=== PATIENT | male | born 1960 | race Caucasian/White ===

== ENCOUNTER 2022-08-29 14:15 | Inpatient (IN) ==
[2022-08-29] MEDS ORDERED: Aspirin 81 MG TAB.CHEW PO ONE (14:29)
[2022-08-29 14:42] LABS: Mean Corpuscular HGB Conc 34.3 g/dL (31.6-35.5); Mean Corpuscular Hemoglobin 32.6 pg (28.0-33.3); Mean Corpuscular Volume 95.1 fL (83.0-100.0); Mean Platelet Volume 10.1 fL (9.4-12.4); Monocytes % 10.5 %; Platelet Count 471 K/mcL (140-400); Red Blood Count 3.68 M/mcL (4.19-5.50); Red Cell Distribution Width 14.1 % (11.5-14.5); Segmented Neutrophils % 78.1 %; White Blood Count 14.6 K/mcL (4.3-11.1)
[2022-08-29 14:43] LABS: Basophils # 0.1 K/mcL (0.0-0.2); Basophils % 0.3 %; Eosinophils % 0.1 %; Lymphocytes # 1.5 K/mcL (0.6-4.6); Monocytes # 1.5 K/mcL (0.0-1.3); Neutrophils # 11.4 K/mcL (1.6-8.9)
[2022-08-29 14:55] LABS: INR 1.6; Prothrombin Time 18.3 Seconds (9.4-12.1)
[2022-08-29 15:00] LABS: BUN/Creatinine Ratio 28 (6-26); Blood Urea Nitrogen 26 mg/dL (8-23); Calcium 8.7 mg/dL (8.6-10.3); Carbon Dioxide 24 mEq/L (23-29); Chloride 95 mEq/L (98-107); Glucose 137 mg/dL (70-105); Osmolality,Calculated 281 (280-300); Potassium 4.2 mEq/L (3.5-5.1); Sodium 132 mEq/L (136-145)
[2022-08-29 15:06] LABS: Troponin I 0.28 ng/mL (< 0.04)
[2022-08-29] MEDS: DilTIAZem 50 MG/50 ML IV.SOLN IVC SCH ×2 (15:29→18:15)
[2022-08-29] MEDS ORDERED: Mag Hydrox/Al Hydrox/Simeth 30 ML UDC PO PRN (15:53)
[2022-08-29] MEDS ORDERED: *HR* Heparin 5,000 UNIT/ML VIAL IVP ONE (15:53)
[2022-08-29] MEDS ORDERED: Naloxone 0.4 MG/ML INJ IVP PRN (15:53)
[2022-08-29] MEDS ORDERED: *HR* LORazepam 1 MG TABLET PO PRN ×3 (15:53)
[2022-08-29] MEDS ORDERED: Acetaminophen 325 MG TABLET PO PRN (15:53)
[2022-08-29] MEDS ORDERED: Thiamine (B-1) 200 MG in 0.9 % Sodium Chloride 50 ML IVPB ONE (15:53)
[2022-08-29] MEDS ORDERED: *HR* Heparin 5,000 UNIT/ML VIAL IVP PRN (15:53)
[2022-08-29] MEDS ORDERED: MOM Conc 10 ML UD.LIQ PO PRN (15:53)
[2022-08-29 17:30] LABS: Magnesium 1.9 mg/dL (1.6-2.6)
[2022-08-29] MEDS: Heparin 25,000UNIT/250ML 1/2NS 25,000 UNIT/250 ML IV.SOLN IVC SCH (17:51)
[2022-08-29] MEDS ORDERED: *HR* LORazepam 2 MG/ML VIAL IVP STA (17:57)
[2022-08-29] MEDS ORDERED: *HR* Metoprolol 5 MG/5 ML VIAL IVP PRN (18:13)
[2022-08-29] MEDS: Ondansetron ODT 4 MG TAB.RAPDIS SL PRN (19:04)
[2022-08-29 20:40] LABS: VBG HCO3 28 mEq/L (21-27); VBG PCO2 55 mmHg (41-51); VBG PH 7.32 pH Units (7.32-7.42); VBG PO2 41 mmHg (25-50)
[2022-08-30] MEDS: DilTIAZem 50 MG/50 ML IV.SOLN IVC SCH ×3 (01:22→12:00)
[2022-08-30 04:59] LABS: Hematocrit 33.4 % (37.5-50.1); Mean Corpuscular HGB Conc 32.9 g/dL (31.6-35.5); Mean Corpuscular Hemoglobin 31.7 pg (28.0-33.3); Mean Corpuscular Volume 96.3 fL (83.0-100.0); Mean Platelet Volume 10.3 fL (9.4-12.4); Platelet Count 434 K/mcL (140-400); Red Blood Count 3.47 M/mcL (4.19-5.50); Red Cell Distribution Width 14.3 % (11.5-14.5); White Blood Count 17.2 K/mcL (4.3-11.1)
[2022-08-30 05:27] LABS: Albumin/Globulin Ratio 0.9 (1.1-2.2); Bilirubin,Total 1.1 mg/dL (0.3-1.0); Calcium 8.4 mg/dL (8.6-10.3); Chol/HDL Ratio 4.9 (0-4.9); Globulin 3.2 g/dL (2.4-3.5); Phosphorous 5.1 mg/dL (2.7-4.5); Potassium 4.5 mEq/L (3.5-5.1); Total Protein 6.2 g/dL (6.4-8.9); Troponin I 1.41 ng/mL (< 0.04)
[2022-08-30] MEDS: *HR* Heparin 5,000 UNIT/ML VIAL IVP PRN ×2 (05:27→12:11)
[2022-08-30] MEDS ORDERED: Iopamidol - 370 500 ML MLS IVP ONE ×2 (07:54→10:02)
[2022-08-30] MEDS ORDERED: 0.9 % Sodium Chloride 1,000 ML IVC SCH (08:00)
[2022-08-30] MEDS: Folic Acid 1 MG TABLET PO SCH (08:04)
[2022-08-30] MEDS ORDERED: Vitamin B Complex/Vit C/Vit E 1 EACH TABLET PO SCH (09:00)
[2022-08-30] MEDS ORDERED: Thiamine (B-1) 100 MG TABLET PO SCH (09:00)
[2022-08-30] MEDS ORDERED: Gadolinium Contrast Agent (WT Based) IV PRN (09:51)
[2022-08-30] MEDS ORDERED: Iopamidol - 370 500 ML MLS PO ONE (11:28)
[2022-08-30] MEDS: Ondansetron ODT 4 MG TAB.RAPDIS SL PRN ×2 (12:53→20:30)
[2022-08-30] MEDS: Heparin 25,000UNIT/250ML 1/2NS 25,000 UNIT/250 ML IV.SOLN IVC SCH (14:15)
[2022-08-30] MEDS ORDERED: Acetaminophen 325 MG TABLET PO PRN (14:47)
[2022-08-30] MEDS ORDERED: Levalbuterol Neb 0.63 MG/3 ML IH PRN (14:56)
[2022-08-30] MEDS: Budesonide/Formoterol 160/4.5 1 PUFF INH IH SCH (22:24)
[2022-08-31 01:02] LABS: Basophils % 0.2 %; Hematocrit 31.7 % (37.5-50.1); Hemoglobin 10.4 g/dL (12.9-16.9); Immature Granulocytes % 1.9 % (0-4); Lymphocytes # 1.4 K/mcL (0.6-4.6); Lymphocytes % 6.1 %; Mean Corpuscular HGB Conc 32.8 g/dL (31.6-35.5); Mean Corpuscular Hemoglobin 32.5 pg (28.0-33.3); Mean Corpuscular Volume 99.1 fL (83.0-100.0); Mean Platelet Volume 10.3 fL (9.4-12.4); Monocytes # 1.4 K/mcL (0.0-1.3); Monocytes % 6.2 %; Neutrophils # 19.2 K/mcL (1.6-8.9); Nucleated Red Blood Cells 0.1 /100 WBC (0); Platelet Count 487 K/mcL (140-400); Red Cell Distribution Width 14.2 % (11.5-14.5); Segmented Neutrophils % 85.6 %; White Blood Count 22.4 K/mcL (4.3-11.1)
[2022-08-31 01:15] LABS: INR 2.3; Prothrombin Time 25.3 Seconds (9.4-12.1)
[2022-08-31 01:20] LABS: Calcium 7.8 mg/dL (8.6-10.3); Magnesium 2.2 mg/dL (1.6-2.6); Potassium 5.1 mEq/L (3.5-5.1)
[2022-08-31 01:33] LABS: Alanine Aminotransferase 1086 Units/L (7-52); Albumin 2.8 g/dL (3.5-5.7); Albumin/Globulin Ratio 0.9 (1.1-2.2); Alkaline Phosphatase 105 Units/L (34-104); Aspartate Amino Transferase > 3000 Units/L (13-39); Bilirubin,Indirect 0.7 mg/dL (0.0-1.0); Bilirubin,Total 1.7 mg/dL (0.3-1.0); Total Protein 5.8 g/dL (6.4-8.9)
[2022-08-31 02:02] LABS: Hepatitis B Surface Antigen Nonreactive (Nonreactive)
[2022-08-31 02:31] LABS: Hepatitis B Core IgM Nonreactive (Nonreactive)
[2022-08-31 02:32] LABS: Hepatitis A Antibody IgM Nonreactive (Nonreactive); Hepatitis C Virus Antibody Nonreactive (Nonreactive)
[2022-08-31] MEDS ORDERED: MethylPREDNISolone 40 MG/ML VIAL IVP ONE (07:35)
[2022-08-31] MEDS ORDERED: Thiamine (B-1) 100 MG, Folic Acid 1 MG, MVI, adult with vitamin K 10 ML in 0.9 % Sodi... IVPB SCH ×2 (07:40→09:00)
[2022-08-31] MEDS ORDERED: *HR* Phytonadione 10 MG/ML AMPUL SQ ONE (07:41)
[2022-08-31] MEDS ORDERED: 0.9 % Sodium Chloride 1,000 ML IVC SCH (07:45)
[2022-08-31] MEDS: Budesonide/Formoterol 160/4.5 1 PUFF INH IH SCH ×2 (08:06→22:20)
[2022-08-31] MEDS ORDERED: Aspirin Enteric Coated 81 MG Tablet PO SCH (09:00)
[2022-08-31] MEDS: Albumin Human 5% 12.5 GM/250 ML IV.SOLN IVC SCH ×3 (09:12→17:54)
[2022-08-31] MEDS: Folic Acid 1 MG TABLET PO SCH (09:13)
[2022-08-31] MEDS ORDERED: 0.9 % Sodium Chloride 250 ML ONE (11:44)
[2022-08-31] MEDS ORDERED: *HR* FentaNYL (PF) 100 MCG/2 ML VIAL IVP PRN ×2 (13:07→15:59)
[2022-08-31] MEDS ORDERED: Ondansetron 4 MG/2 ML VIAL IVP PRN ×2 (13:07→15:59)
[2022-08-31] MEDS ORDERED: Lidocaine -MPF 2% 2 ML VIAL ONE (13:12)
[2022-08-31] MEDS ORDERED: Ondansetron 4 MG/2 ML VIAL ONE (13:12)
[2022-08-31] MEDS ORDERED: *HR* FentaNYL (PF) 100 MCG/2 ML VIAL ONE (13:12)
[2022-08-31] MEDS ORDERED: *HR* Rocuronium Bromide 50 MG/5 ML VIAL ONE (13:14)
[2022-08-31] MEDS ORDERED: *HR* Phenylephrine 10 MG/ML VIAL ONE (14:00)
[2022-08-31] MEDS ORDERED: Mag Hydrox/Al Hydrox/Simeth 30 ML UDC PO PRN (15:59)
[2022-08-31] MEDS ORDERED: Levalbuterol Neb 0.63 MG/3 ML IH PRN (15:59)
[2022-08-31] MEDS ORDERED: *HR* Metoprolol 5 MG/5 ML VIAL IVP PRN (15:59)
[2022-08-31] MEDS ORDERED: Gadolinium Contrast Agent (WT Based) IV PRN (15:59)
[2022-08-31] MEDS ORDERED: *HR* LORazepam 1 MG TABLET PO PRN ×3 (15:59)
[2022-08-31] MEDS ORDERED: MOM Conc 10 ML UD.LIQ PO PRN (15:59)
[2022-08-31] MEDS ORDERED: Naloxone 0.4 MG/ML INJ IVP PRN (15:59)
[2022-08-31] MEDS: DilTIAZem 50 MG/50 ML IV.SOLN IVC SCH ×2 (17:51→20:59)
[2022-09-01] MEDS: *HR* HYDROcodone/Acet 5/325 mg TABLET PO PRN ×2 (02:54→23:00)
[2022-09-01] MEDS: DilTIAZem 50 MG/50 ML IV.SOLN IVC SCH (03:22)
[2022-09-01] MEDS ORDERED: 0.9 % Sodium Chloride 250 ML ONE (03:29)
[2022-09-01] MEDS ORDERED: 0.9 % Sodium Chloride 250 ML IVC ONE (03:31)
[2022-09-01] MEDS: Ondansetron ODT 4 MG TAB.RAPDIS SL PRN (04:10)
[2022-09-01] MEDS ORDERED: Albumin 25% 25gram/100mL 25 GM/100 ML IV.SOLN IVPB ONE (05:16)
[2022-09-01 06:31] LABS: Basophils % 0.1 %; Hematocrit 33.8 % (37.5-50.1); Hemoglobin 10.8 g/dL (12.9-16.9); Lymphocytes # 0.8 K/mcL (0.6-4.6); Lymphocytes % 5.2 %; Mean Corpuscular Volume 100.3 fL (83.0-100.0); Mean Platelet Volume 10.6 fL (9.4-12.4); Monocytes # 0.9 K/mcL (0.0-1.3); Monocytes % 5.2 %; Neutrophils # 14.3 K/mcL (1.6-8.9); Nucleated Red Blood Cells 1.3 /100 WBC (0); Platelet Count 334 K/mcL (140-400); Red Blood Count 3.37 M/mcL (4.19-5.50); Red Cell Distribution Width 14.3 % (11.5-14.5); Segmented Neutrophils % 87.5 %; White Blood Count 16.3 K/mcL (4.3-11.1)
[2022-09-01 06:43] LABS: INR 2.3; Prothrombin Time 25.5 Seconds (9.4-12.1)
[2022-09-01 06:46] LABS: Activated Partial Thrombo Time 31.2 Seconds (26.0-36.0)
[2022-09-01] MEDS ORDERED: 0.9 % Sodium Chloride 500 ML IVC ONE (06:59)
[2022-09-01 07:23] LABS: Albumin 3.3 g/dL (3.5-5.7); Albumin/Globulin Ratio 1.2 (1.1-2.2); Bilirubin,Direct 0.8 mg/dL (0.0-0.2); Bilirubin,Indirect 0.7 mg/dL (0.0-1.0); Bilirubin,Total 1.5 mg/dL (0.3-1.0); Calcium 7.8 mg/dL (8.6-10.3); Globulin 2.8 g/dL (2.4-3.5); Magnesium 2.4 mg/dL (1.6-2.6); Potassium 4.5 mEq/L (3.5-5.1); Total Protein 6.1 g/dL (6.4-8.9)
[2022-09-01] MEDS: Aspirin Enteric Coated 81 MG Tablet PO SCH (09:21)
[2022-09-01] MEDS: Budesonide/Formoterol 160/4.5 1 PUFF INH IH SCH ×2 (09:48→20:22)
[2022-09-01] MEDS: PrednisoLONE Oral Soln 15 MG/5 ML UDC PO SCH (13:17)
[2022-09-01] MEDS ORDERED: *HR* Heparin 5,000 UNIT/ML VIAL IVP PRN ×2 (16:09)
[2022-09-01] MEDS: Albumin Human 5% 12.5 GM/250 ML IV.SOLN IVC SCH (16:09)
[2022-09-01] MEDS ORDERED: Heparin 25,000UNIT/250ML 1/2NS 25,000 UNIT/250 ML IV.SOLN IVC SCH (16:15)
[2022-09-01] MEDS: Sennosides/Docusate Sodium TABLET PO SCH (20:25)
[2022-09-02 02:38] LABS: Basophils % 0.1 %; Hematocrit 32.6 % (37.5-50.1); Hemoglobin 11.1 g/dL (12.9-16.9); Immature Granulocytes % 1.7 % (0-4); Lymphocytes # 1.3 K/mcL (0.6-4.6); Lymphocytes % 7.3 %; Mean Corpuscular Hemoglobin 32.7 pg (28.0-33.3); Mean Corpuscular Volume 96.2 fL (83.0-100.0); Mean Platelet Volume 10.7 fL (9.4-12.4); Monocytes % 5.6 %; Neutrophils # 14.9 K/mcL (1.6-8.9); Nucleated Red Blood Cells 3.2 /100 WBC (0); Platelet Count 277 K/mcL (140-400); Red Blood Count 3.39 M/mcL (4.19-5.50); Red Cell Distribution Width 14.4 % (11.5-14.5); Segmented Neutrophils % 85.3 %; White Blood Count 17.4 K/mcL (4.3-11.1)
[2022-09-02 02:46] LABS: INR 2.1; Prothrombin Time 23.1 Seconds (9.4-12.1)
[2022-09-02 02:49] LABS: Activated Partial Thrombo Time 38.9 Seconds (26.0-36.0)
[2022-09-02 03:18] LABS: Albumin 3.2 g/dL (3.5-5.7); Albumin/Globulin Ratio 1.1 (1.1-2.2); Globulin 2.8 g/dL (2.4-3.5); Magnesium 2.5 mg/dL (1.6-2.6); Potassium 4.8 mEq/L (3.5-5.1)
[2022-09-02] MEDS: Aspirin Enteric Coated 81 MG Tablet PO SCH (08:41)
[2022-09-02] MEDS: PrednisoLONE Oral Soln 15 MG/5 ML UDC PO SCH (08:41)
[2022-09-02] MEDS: Sennosides/Docusate Sodium TABLET PO SCH ×2 (08:42→20:05)
[2022-09-02] MEDS: Budesonide/Formoterol 160/4.5 1 PUFF INH IH SCH ×2 (09:27→20:27)
[2022-09-02] MEDS: *HR* HYDROcodone/Acet 5/325 mg TABLET PO PRN ×2 (11:57→20:05)
[2022-09-02] MEDS ORDERED: *HR* Phytonadione 10 MG/ML AMPUL SQ ONE (12:29)
[2022-09-02 14:31] LABS: Bilirubin,Urine Negative (Negative); Blood,Urine Negative (Negative); Clarity,Urine Clear (Clear); Color,Urine Yellow (Yellow); Glucose,Urine (UA) Normal (Normal); Ketones,Urine Negative (Negative); Leukocyte Esterase,Urine Negative (Negative); Nitrite,Urine Negative (Negative); Protein,Urine Trace mg/dL (Neg-Trace); Specific Gravity,Urine 1.024 (1.010-1.025)
[2022-09-02 14:45] LABS: Creatinine,Urine 72 mg/dL; Sodium, Urine < 10.0 mEq/L
[2022-09-02] MEDS: Albumin Human 5% 12.5 GM/250 ML IV.SOLN IVC SCH ×2 (15:49→20:05)
[2022-09-03 06:24] LABS: Basophils # 0.1 K/mcL (0.0-0.2); Basophils % 0.3 %; Eosinophils # 0.1 K/mcL (0.0-0.6); Eosinophils % 0.5 %; Hematocrit 33.6 % (37.5-50.1); Hemoglobin 11.1 g/dL (12.9-16.9); Lymphocytes # 1.5 K/mcL (0.6-4.6); Lymphocytes % 8.4 %; Mean Corpuscular Hemoglobin 31.9 pg (28.0-33.3); Mean Corpuscular Volume 96.6 fL (83.0-100.0); Monocytes # 1.5 K/mcL (0.0-1.3); Monocytes % 8.3 %; Neutrophils # 14.1 K/mcL (1.6-8.9); Nucleated Red Blood Cells 2.3 /100 WBC (0); Platelet Count 269 K/mcL (140-400); Red Blood Count 3.48 M/mcL (4.19-5.50); Red Cell Distribution Width 14.7 % (11.5-14.5); Segmented Neutrophils % 80.5 %; White Blood Count 17.6 K/mcL (4.3-11.1)
[2022-09-03 06:31] LABS: INR 1.8; Prothrombin Time 19.5 Seconds (9.4-12.1)
[2022-09-03 06:33] LABS: Activated Partial Thrombo Time 27.9 Seconds (26.0-36.0)
[2022-09-03 06:58] LABS: Albumin 3.4 g/dL (3.5-5.7); Albumin/Globulin Ratio 1.3 (1.1-2.2); Bilirubin,Indirect 0.9 mg/dL (0.0-1.0); Bilirubin,Total 1.9 mg/dL (0.3-1.0); Globulin 2.7 g/dL (2.4-3.5); Magnesium 2.5 mg/dL (1.6-2.6); Potassium 4.6 mEq/L (3.5-5.1); Total Protein 6.1 g/dL (6.4-8.9)
[2022-09-03] MEDS: PrednisoLONE Oral Soln 15 MG/5 ML UDC PO SCH (08:28)
[2022-09-03] MEDS: Aspirin Enteric Coated 81 MG Tablet PO SCH (08:28)
[2022-09-03] MEDS: Multivit/Ca/Min/Fe/FA 1 TAB TABLET PO SCH (08:28)
[2022-09-03] MEDS: Sennosides/Docusate Sodium TABLET PO SCH ×2 (08:28→20:44)
[2022-09-03] MEDS: Budesonide/Formoterol 160/4.5 1 PUFF INH IH SCH ×2 (09:50→20:21)
[2022-09-03] MEDS: Ondansetron ODT 4 MG TAB.RAPDIS SL PRN (11:24)
[2022-09-03] MEDS: *HR* HYDROcodone/Acet 5/325 mg TABLET PO PRN ×2 (12:56→20:43)
[2022-09-03] MEDS: Apixaban 5 MG TABLET PO SCH ×2 (12:57→20:44)
[2022-09-03] MEDS: *HR* Digoxin 0.5 MG/2 ML AMPUL IVP SCH (19:44)
[2022-09-04] MEDS: *HR* Digoxin 0.5 MG/2 ML AMPUL IVP SCH ×2 (02:33→07:53)
[2022-09-04] MEDS: Budesonide/Formoterol 160/4.5 1 PUFF INH IH SCH ×2 (07:43→20:04)
[2022-09-04] MEDS: Multivit/Ca/Min/Fe/FA 1 TAB TABLET PO SCH (07:52)
[2022-09-04] MEDS: Sennosides/Docusate Sodium TABLET PO SCH ×2 (07:52→20:59)
[2022-09-04] MEDS: Apixaban 5 MG TABLET PO SCH ×2 (07:52→20:59)
[2022-09-04] MEDS: Aspirin Enteric Coated 81 MG Tablet PO SCH (07:52)
[2022-09-04] MEDS: PrednisoLONE Oral Soln 15 MG/5 ML UDC PO SCH (07:53)
[2022-09-04 10:11] LABS: Basophils # 0.1 K/mcL (0.0-0.2); Basophils % 0.2 %; Hematocrit 36.9 % (37.5-50.1); Hemoglobin 12.3 g/dL (12.9-16.9); Immature Granulocytes % 1.4 % (0-4); Lymphocytes # 1.2 K/mcL (0.6-4.6); Lymphocytes % 5.7 %; Mean Corpuscular HGB Conc 33.3 g/dL (31.6-35.5); Mean Corpuscular Volume 96.1 fL (83.0-100.0); Mean Platelet Volume 11.1 fL (9.4-12.4); Monocytes # 1.4 K/mcL (0.0-1.3); Monocytes % 6.7 %; Nucleated Red Blood Cells 1.1 /100 WBC (0); Platelet Count 281 K/mcL (140-400); Red Blood Count 3.84 M/mcL (4.19-5.50); Red Cell Distribution Width 15.1 % (11.5-14.5)
[2022-09-04 10:21] LABS: Activated Partial Thrombo Time 30.8 Seconds (26.0-36.0)
[2022-09-04 10:27] LABS: INR 3.4; Prothrombin Time 37.1 Seconds (9.4-12.1)
[2022-09-04 10:29] LABS: Calcium 8.1 mg/dL (8.6-10.3); Potassium 4.8 mEq/L (3.5-5.1)
[2022-09-04 11:00] LABS: Albumin 3.2 g/dL (3.5-5.7); Bilirubin,Direct 1.1 mg/dL (0.0-0.2); Bilirubin,Total 2.1 mg/dL (0.3-1.0); Globulin 3.1 g/dL (2.4-3.5); Total Protein 6.3 g/dL (6.4-8.9)
[2022-09-04] MEDS ORDERED: *HR* Digoxin 0.5 MG/2 ML AMPUL IVP ONE (14:00)
[2022-09-04] MEDS: *HR* HYDROcodone/Acet 5/325 mg TABLET PO PRN (20:59)
[2022-09-05 03:32] LABS: Basophils # 0.1 K/mcL (0.0-0.2); Basophils % 0.3 %; Hematocrit 36.6 % (37.5-50.1); Hemoglobin 11.9 g/dL (12.9-16.9); Immature Granulocytes % 1.2 % (0-4); Lymphocytes # 1.2 K/mcL (0.6-4.6); Lymphocytes % 5.4 %; Mean Corpuscular HGB Conc 32.5 g/dL (31.6-35.5); Mean Corpuscular Hemoglobin 31.9 pg (28.0-33.3); Mean Corpuscular Volume 98.1 fL (83.0-100.0); Mean Platelet Volume 11.4 fL (9.4-12.4); Monocytes % 8.9 %; Neutrophils # 18.8 K/mcL (1.6-8.9); Nucleated Red Blood Cells 0.6 /100 WBC (0); Platelet Count 274 K/mcL (140-400); Red Blood Count 3.73 M/mcL (4.19-5.50); Red Cell Distribution Width 15.8 % (11.5-14.5); Segmented Neutrophils % 84.2 %; White Blood Count 22.3 K/mcL (4.3-11.1)
[2022-09-05 03:59] LABS: Alanine Aminotransferase 383 Units/L (7-52); Albumin 2.8 g/dL (3.5-5.7); Albumin/Globulin Ratio 1.1 (1.1-2.2); Alkaline Phosphatase 128 Units/L (34-104); Aspartate Amino Transferase 158 Units/L (13-39); BUN/Creatinine Ratio 40 (6-26); Bilirubin,Indirect 0.9 mg/dL (0.0-1.0); Bilirubin,Total 1.9 mg/dL (0.3-1.0); Blood Urea Nitrogen 33 mg/dL (8-23); Calcium 7.8 mg/dL (8.6-10.3); Carbon Dioxide 28 mEq/L (23-29); Chloride 105 mEq/L (98-107); Globulin 2.6 g/dL (2.4-3.5); Glucose 129 mg/dL (70-105); Osmolality,Calculated 293 (280-300); Potassium 4.4 mEq/L (3.5-5.1); Sodium 137 mEq/L (136-145); Total Protein 5.4 g/dL (6.4-8.9)
[2022-09-05] MEDS: Budesonide/Formoterol 160/4.5 1 PUFF INH IH SCH (07:26)
[2022-09-05] MEDS ORDERED: PrednisoLONE Oral Soln 15 MG/5 ML UDC PO SCH ×2 (09:00)
[2022-09-05] MEDS: Sennosides/Docusate Sodium TABLET PO SCH (09:13)
[2022-09-05] MEDS: Aspirin Enteric Coated 81 MG Tablet PO SCH (09:13)
[2022-09-05] MEDS: Multivit/Ca/Min/Fe/FA 1 TAB TABLET PO SCH (09:13)
[2022-09-05] MEDS: Apixaban 5 MG TABLET PO SCH (09:13)
[2022-09-05 10:53] VITALS: BP 140/90; PULSE 97; TEMP 98; O2SAT 95
== END 2022-09-05 14:18 | disposition home health service (06) | DRG 45 ==
LOC: EMEROOARM 14:15 → 2NENU 14:15 → SUATTDRO 16:12 → 2NENU 17:00 → 2NNU 08-31 15:33 → 2ANU 09-04 17:24
PROVIDERS: ADMIT Internal Medicine; ATTEND Internal Medicine

== ENCOUNTER 2022-09-06 03:32 | Inpatient (IN) ==
[2022-09-06] MEDS ORDERED: *HR* Metoprolol 5 MG/5 ML VIAL IVP ONE ×3 (04:10→05:48)
[2022-09-06 04:42] LABS: Nucleated Red Blood Cells 0.4 /100 WBC (0); Red Cell Distribution Width 15.9 % (11.5-14.5)
[2022-09-06 04:44] LABS: Basophils # 0.1 K/mcL (0.0-0.2); Basophils % 0.4 %; Hematocrit 49.6 % (37.5-50.1); Hemoglobin 16.6 g/dL (12.9-16.9); Lymphocytes % 3.5 %; Mean Corpuscular HGB Conc 33.5 g/dL (31.6-35.5); Mean Corpuscular Hemoglobin 32.2 pg (28.0-33.3); Mean Corpuscular Volume 96.3 fL (83.0-100.0); Mean Platelet Volume 11.2 fL (9.4-12.4); Monocytes # 0.8 K/mcL (0.0-1.3); Monocytes % 2.8 %; Neutrophils # 26.4 K/mcL (1.6-8.9); Platelet Count 379 K/mcL (140-400); Red Blood Count 5.15 M/mcL (4.19-5.50); Segmented Neutrophils % 92.3 %; White Blood Count 28.6 K/mcL (4.3-11.1)
[2022-09-06] MEDS ORDERED: Ondansetron 4 MG/2 ML VIAL IVP ONE ×2 (04:55→09:40)
[2022-09-06 05:10] LABS: Calcium 8.7 mg/dL (8.6-10.3); Magnesium 1.9 mg/dL (1.6-2.6)
[2022-09-06 05:47] LABS: Albumin 3.3 g/dL (3.5-5.7); Bilirubin,Direct 1.2 mg/dL (0.0-0.2); Bilirubin,Indirect 1.8 mg/dL (0.0-1.0); Globulin 3.4 g/dL (2.4-3.5); Total Protein 6.7 g/dL (6.4-8.9)
[2022-09-06] MEDS ORDERED: 0.9 % Sodium Chloride 500 ML IVC ONE (05:47)
[2022-09-06] MEDS ORDERED: Amiodarone Premix 360 MG/200 ML BAG IVC SCH ×2 (07:00→15:09)
[2022-09-06] MEDS ORDERED: 0.9 % Sodium Chloride 250 ML IV ONE (09:05)
[2022-09-06] MEDS ORDERED: 0.9 % Sodium Chloride 500 ML ONE (09:07)
[2022-09-06] MEDS ORDERED: Amiodarone Premix 150 MG/100 ML BAG IVPB ONE (09:09)
[2022-09-06] MEDS ORDERED: Amiodarone Premix 360 MG/200 ML BAG IVC ONE (09:09)
[2022-09-06] MEDS ORDERED: Albumin 25% 25gram/100mL 25 GM/100 ML IV.SOLN IVPB PRN (09:12)
[2022-09-06] MEDS ORDERED: Ondansetron 4 MG/2 ML VIAL IVP PRN (10:41)
[2022-09-06] MEDS ORDERED: Naloxone 0.4 MG/ML INJ IVP PRN (10:41)
[2022-09-06] MEDS ORDERED: Sennosides/Docusate Sodium TABLET PO PRN (11:45)
[2022-09-06] MEDS ORDERED: Levalbuterol Neb 0.63 MG/3 ML IH PRN (11:45)
[2022-09-06] MEDS ORDERED: Iopamidol - 370 500 ML MLS IVP ONE (15:19)
[2022-09-06] MEDS: Apixaban 5 MG TABLET PO SCH ×2 (15:47→21:14)
[2022-09-06] MEDS: *HR* HYDROcodone/Acet 5/325 mg TABLET PO PRN (15:47)
[2022-09-06] MEDS: PrednisoLONE Oral Soln 15 MG/5 ML UDC PO SCH (15:47)
[2022-09-06] MEDS: Metoprolol 100 MG TABLET PO SCH ×2 (15:48→21:15)
[2022-09-07] MEDS: *HR* HYDROcodone/Acet 5/325 mg TABLET PO PRN ×2 (05:57→13:49)
[2022-09-07] MEDS ORDERED: *HR* Metoprolol 5 MG/5 ML VIAL IVP ONE ×2 (06:13→06:52)
[2022-09-07] MEDS: Aspirin Enteric Coated 81 MG Tablet PO SCH (07:45)
[2022-09-07] MEDS: PrednisoLONE Oral Soln 15 MG/5 ML UDC PO SCH (07:45)
[2022-09-07] MEDS: Apixaban 5 MG TABLET PO SCH ×2 (07:46→19:42)
[2022-09-07 08:13] LABS: INR 3.3
[2022-09-07 08:16] LABS: Activated Partial Thrombo Time 38.5 Seconds (26.0-36.0)
[2022-09-07 08:19] LABS: Basophils # 0.1 K/mcL (0.0-0.2); Basophils % 0.2 %; Hematocrit 37.5 % (37.5-50.1); Immature Granulocytes % 1.9 % (0-4); Lymphocytes # 1.2 K/mcL (0.6-4.6); Lymphocytes % 3.5 %; Mean Corpuscular HGB Conc 34.4 g/dL (31.6-35.5); Mean Corpuscular Hemoglobin 31.9 pg (28.0-33.3); Mean Corpuscular Volume 92.8 fL (83.0-100.0); Mean Platelet Volume 11.3 fL (9.4-12.4); Monocytes # 1.7 K/mcL (0.0-1.3); Monocytes % 4.9 %; Neutrophils # 31.3 K/mcL (1.6-8.9); Platelet Count 268 K/mcL (140-400); Red Blood Count 4.04 M/mcL (4.19-5.50); Red Cell Distribution Width 15.2 % (11.5-14.5); Segmented Neutrophils % 89.5 %
[2022-09-07 08:28] LABS: Hemoglobin 12.9 g/dL (12.9-16.9)
[2022-09-07 08:39] LABS: Albumin 2.7 g/dL (3.5-5.7); Albumin/Globulin Ratio 1.1 (1.1-2.2); Bilirubin,Direct 1.7 mg/dL (0.0-0.2); Bilirubin,Indirect 1.3 mg/dL (0.0-1.0); Calcium 8.1 mg/dL (8.6-10.3); Globulin 2.5 g/dL (2.4-3.5); Magnesium 1.9 mg/dL (1.6-2.6); Phosphorous 3.8 mg/dL (2.7-4.5); Potassium 4.7 mEq/L (3.5-5.1); Total Protein 5.2 g/dL (6.4-8.9)
[2022-09-07] MEDS: Metoprolol 100 MG TABLET PO SCH ×2 (11:29→19:42)
[2022-09-07] MEDS: Budesonide/Formoterol 160/4.5 1 PUFF INH IH SCH (20:44)
[2022-09-08] MEDS: *HR* HYDROcodone/Acet 5/325 mg TABLET PO PRN ×3 (02:11→21:28)
[2022-09-08] MEDS ORDERED: *HR* Metoprolol 5 MG/5 ML VIAL IVP ONE (02:30)
[2022-09-08 02:51] LABS: Basophils # 0.1 K/mcL (0.0-0.2); Basophils % 0.2 %; Hematocrit 36.8 % (37.5-50.1); Hemoglobin 12.4 g/dL (12.9-16.9); Immature Granulocytes % 1.2 % (0-4); Lymphocytes # 1.1 K/mcL (0.6-4.6); Lymphocytes % 3.7 %; Mean Corpuscular HGB Conc 33.7 g/dL (31.6-35.5); Mean Corpuscular Hemoglobin 30.9 pg (28.0-33.3); Mean Corpuscular Volume 91.8 fL (83.0-100.0); Mean Platelet Volume 11.2 fL (9.4-12.4); Monocytes # 1.5 K/mcL (0.0-1.3); Monocytes % 5.2 %; Neutrophils # 26.6 K/mcL (1.6-8.9); Nucleated Red Blood Cells 0.1 /100 WBC (0); Platelet Count 282 K/mcL (140-400); Red Blood Count 4.01 M/mcL (4.19-5.50); Red Cell Distribution Width 15.1 % (11.5-14.5); Segmented Neutrophils % 89.7 %; White Blood Count 29.7 K/mcL (4.3-11.1)
[2022-09-08 03:12] LABS: BUN/Creatinine Ratio 46 (6-26); Blood Urea Nitrogen 39 mg/dL (8-23); Calcium 8.5 mg/dL (8.6-10.3); Carbon Dioxide 25 mEq/L (23-29); Chloride 101 mEq/L (98-107); Glucose 103 mg/dL (70-105); Magnesium 1.9 mg/dL (1.6-2.6); Osmolality,Calculated 284 (280-300); Phosphorous 2.6 mg/dL (2.7-4.5); Potassium 4.7 mEq/L (3.5-5.1); Sodium 132 mEq/L (136-145)
[2022-09-08] MEDS: Budesonide/Formoterol 160/4.5 1 PUFF INH IH SCH ×2 (07:43→19:45)
[2022-09-08] MEDS: Metoprolol 100 MG TABLET PO SCH ×2 (08:25→19:53)
[2022-09-08] MEDS: Aspirin Enteric Coated 81 MG Tablet PO SCH (08:26)
[2022-09-08] MEDS: Apixaban 5 MG TABLET PO SCH ×2 (08:26→19:53)
[2022-09-08] MEDS: PrednisoLONE Oral Soln 15 MG/5 ML UDC PO SCH (08:28)
[2022-09-08] MEDS ORDERED: Albumin 25% 25gram/100mL 25 GM/100 ML IV.SOLN IVPB ONE (09:11)
[2022-09-09] MEDS: *HR* HYDROcodone/Acet 5/325 mg TABLET PO PRN ×5 (03:24→20:15)
[2022-09-09 05:26] LABS: Basophils # 0.1 K/mcL (0.0-0.2); Basophils % 0.3 %; Hematocrit 33.8 % (37.5-50.1); Hemoglobin 11.6 g/dL (12.9-16.9); Immature Granulocytes % 1.5 % (0-4); Lymphocytes % 3.8 %; Mean Corpuscular HGB Conc 34.3 g/dL (31.6-35.5); Mean Corpuscular Hemoglobin 31.4 pg (28.0-33.3); Mean Corpuscular Volume 91.4 fL (83.0-100.0); Mean Platelet Volume 11.5 fL (9.4-12.4); Monocytes # 1.8 K/mcL (0.0-1.3); Monocytes % 6.5 %; Neutrophils # 23.9 K/mcL (1.6-8.9); Nucleated Red Blood Cells 0.1 /100 WBC (0); Platelet Count 280 K/mcL (140-400); Red Cell Distribution Width 15.3 % (11.5-14.5); Segmented Neutrophils % 87.9 %; White Blood Count 27.2 K/mcL (4.3-11.1)
[2022-09-09 05:40] LABS: BUN/Creatinine Ratio 44 (6-26); Blood Urea Nitrogen 30 mg/dL (8-23); Calcium 8.3 mg/dL (8.6-10.3); Carbon Dioxide 29 mEq/L (23-29); Chloride 102 mEq/L (98-107); Glucose 95 mg/dL (70-105); Magnesium 1.9 mg/dL (1.6-2.6); Osmolality,Calculated 286 (280-300); Phosphorous 2.7 mg/dL (2.7-4.5); Potassium 4.2 mEq/L (3.5-5.1); Sodium 135 mEq/L (136-145)
[2022-09-09] MEDS: Budesonide/Formoterol 160/4.5 1 PUFF INH IH SCH ×4 (07:59→20:11)
[2022-09-09] MEDS: Apixaban 5 MG TABLET PO SCH ×2 (08:03→20:15)
[2022-09-09] MEDS: Metoprolol 100 MG TABLET PO SCH ×2 (08:03→20:14)
[2022-09-09] MEDS: Aspirin Enteric Coated 81 MG Tablet PO SCH (08:03)
[2022-09-09] MEDS: PrednisoLONE Oral Soln 15 MG/5 ML UDC PO SCH (08:04)
[2022-09-09] MEDS: *HR* OxyCODONE ER (12 HR) 10 MG TABLET PO SCH (17:59)
[2022-09-10] MEDS: *HR* HYDROcodone/Acet 5/325 mg TABLET PO PRN ×3 (00:17→08:41)
[2022-09-10] MEDS: *HR* OxyCODONE ER (12 HR) 10 MG TABLET PO SCH (06:11)
[2022-09-10] MEDS: Metoprolol 100 MG TABLET PO SCH ×2 (06:57→21:47)
[2022-09-10 07:27] VITALS: BP 124/84; PULSE 44; TEMP 97.4; O2SAT 98
[2022-09-10] MEDS ORDERED: *HR* Digoxin 0.5 MG/2 ML AMPUL IVP ONE (08:02)
[2022-09-10] MEDS: Apixaban 5 MG TABLET PO SCH ×2 (08:40→21:47)
[2022-09-10] MEDS: Aspirin Enteric Coated 81 MG Tablet PO SCH (08:41)
[2022-09-10] MEDS: PrednisoLONE Oral Soln 15 MG/5 ML UDC PO SCH (08:42)
[2022-09-10] MEDS ORDERED: Morphine Sulfate 2 MG/ML SYRINGE IVP PRN (09:15)
[2022-09-10] MEDS ORDERED: *HR* FentaNYL PATCH 25 MCG PATCH TD SCH (10:30)
[2022-09-10] MEDS: Morphine Sulfate 2 MG/ML SYRINGE IVP PRN ×2 (10:37→16:53)
[2022-09-10] MEDS: Budesonide/Formoterol 160/4.5 1 PUFF INH IH SCH ×2 (10:56→20:41)
[2022-09-10] MEDS: *HR* LORazepam 2 MG/ML VIAL IVP PRN ×2 (12:50→18:41)
[2022-09-10] MEDS ORDERED: Benzonatate 100 MG CAPSULE PO PRN (22:56)
[2022-09-10] MEDS ORDERED: Scopolamine Patch 1.5 MG PATCH.TD72 TD SCH (23:00)
[2022-09-11] MEDS: *HR* LORazepam 2 MG/ML VIAL IVP PRN ×4 (06:03→10:59)
[2022-09-11] MEDS: Budesonide/Formoterol 160/4.5 1 PUFF INH IH SCH (07:18)
[2022-09-11] MEDS: Morphine Sulfate 2 MG/ML SYRINGE IVP PRN ×3 (08:41→11:00)
[2022-09-11] MEDS: PrednisoLONE Oral Soln 15 MG/5 ML UDC PO SCH (09:27)
[2022-09-11] MEDS: Metoprolol 100 MG TABLET PO SCH (09:27)
[2022-09-11] MEDS: Aspirin Enteric Coated 81 MG Tablet PO SCH (09:27)
[2022-09-11] MEDS: Apixaban 5 MG TABLET PO SCH (09:27)
== END 2022-09-11 11:20 | disposition expired | DRG 201 ==
LOC: EMEROOARM 03:32 → 2NNU 03:32 → SUATTDRO 07:57 → 2NNU 09:04 → 3NENU 09-08 14:37
PROVIDERS: ADMIT Internal Medicine; ATTEND Internal Medicine